=== PATIENT | female | born 1955 | race Caucasian/White ===

== ENCOUNTER 2020-09-18 14:39 | Emergency (ER) | payer OTHER ==
[~2020-09-18] VITALS: Ht 162.6 cm; Wt 59.0 kg
[2020-09-18] MEDS ORDERED: ACETAMINOPHEN 325MG TABLET PO STA (15:30)
[2020-09-18] MEDS ORDERED: SODIUM CHLORIDE 0.9% 500 ML IV ONE (15:30)
[2020-09-18] MEDS ORDERED: HYDROCODONE/ACETAMINOPHEN 5/325MG TABLET PO ONE (20:00)
[2020-09-18 20:25] VITALS: BP 152/78
== END 2020-09-18 20:27 | disposition home or self-care (01) ==
LOC: ER 14:58 → CANBEDREQ 16:58 → ER 20:27
DX: S02.2XXA Fracture of nasal bones, initial encounter for closed fracture (principal); S06.9X0A Unspecified intracranial injury without loss of consciousness, initial encounter; R04.0 Epistaxis; E11.9 Type 2 diabetes mellitus without complications; V43.52XA Car driver injured in collision with other type car in traffic accident, initial encounter; Y93.89 Activity, other specified; Y92.410 Unspecified street and highway as the place of occurrence of the external cause
CPT/HCPCS: 70450; 70486; 71045; 99285; J7030